=== PATIENT | male | born 1990 | race Two or more races ===

== ENCOUNTER 2019-11-06 11:36 | Emergency (ER) | payer OTHER ==
[2019-11-06] MEDS ORDERED: LORAZEPAM 1 MG TABLET PO ONE (11:37)
--- NOTE | 2019-11-06 11:39 | ER Document Report ---
ED General - General Chief Complaint: Shortness Of Breath Stated Complaint: SHORTNESS OF BREATH Notes: 29-year-old male, with a history of heavy drinking and anxiety presents with chest pain shortness of breath extremity and face tingling onset about an hour ago. He says could not come to the ER often for this, but today it was worse I think is from a drinking. Drink heavily yesterday. States he does drink daily but has had anxiety when stopping in the past and thinks he drinks too much. - Related Data Allergies/Adverse Reactions: Penicillins Allergy (Verified 11/06/19 12:14) Past Medical History - General Information source: Patient - Social History Smoking Status: Never Smoker Frequency of alcohol use: Heavy Family History: None Review of Systems - Review of Systems Notes: REVIEW OF SYSTEMS GEN: Denies fever, chills, weight loss ENT: Denies sore throat, nasal discharge, ear pain EYES: Denies blurry vision, eye pain, discharge CV: Chest pain RESP: Denies cough, shortness of breath, wheezing GI: Denies abdominal pain, nausea, vomiting, diarrhea MSK: Denies joint pain/swelling, edema, SKIN: Denies rash, skin lesions LYMPH: Denies swollen glands/lymph nodes NEURO: Denies headache, focal weakness or numbness, dizziness PSYCH: Anxiety panic alcohol abuse PHYSICAL EXAMINATION General: No acute distress, well-nourished Head: Atraumatic, normocephalic ENT: Mouth normal, oropharynx moist, no exudates or tonsillar enlargement Eyes: Conjunctiva normal, pupils equal, lids normal Neck: No JVD, supple, no guarding CVS: Normal rate, regular rhythm, no murmurs Resp: No resp distress, equal and normal breath sounds bilaterally GI: Nondistended, soft, no tenderness to palpation, no rebound or guarding Ext: No deformities, no edema, normal range of motion in upper and lower ext Back: No CVA or midline TTP Skin: No rash, warm Lymphatic: No lymphadeopathy noted Neuro: No tremor hand tremor, mild awake, alert. Face symmetric. GCS 15. Physical Exam - Vital signs Vitals: Temp Pulse Resp BP Pulse Ox 98.9 F 120 H 20 139/87 H 100 11/06/19 11:36 11/06/19 11:36 11/06/19 11:36 11/06/19 11:36 11/06/19 11:36 Course - Re-evaluation Re-evalutation: 11/06/19 11:42 Patient presents with chest pain shortness of breath and tingling reflective of hyperventilation but on exam has some tremulousness and a heavy alcohol use history.. Been treated with Ativan for both. His alcohol withdrawal is mild at best. His chest pain is likely secondary to panic as he has no coronary disease and he does not have features concerning for this. We will check baseline EKG. 11/06/19 13:14 After initial evaluation patient complained of slurred speech. On repeat exam he has severe facial paresthesias but no weakness and no dysarthria. This resolved after about 20 minutes when he was given Ativan. He has no focal deficits. I think he is stable for discharge. - Vital Signs Vital signs: Temp Pulse Resp BP Pulse Ox 98.2 F 120 H 21 H 123/84 100 11/06/19 13:03 11/06/19 11:36 11/06/19 12:47 11/06/19 12:47 11/06/19 12:47 - EKG Interpretation by Me EKG shows normal: Sinus rhythm Rate: Tachycardia Rhythm: NSR When compared to previous EKG there are: No significant change - No ST or T wave changes Discharge - Discharge Clinical Impression: Alcohol abuse, Panic attack Condition: Good Disposition: HOME, SELF-CARE Instructions: Alcohol Withdrawl ([facility]), Panic Attack ([facility])
[2019-11-06 12:52] VITALS: BP 123/84
--- NOTE | 2019-11-06 18:21 | EKG REPORT ---
SEVERITY:- ABNORMAL ECG - SINUS TACHYCARDIA BORDERLINE RIGHT AXIS DEVIATION NONSPECIFIC T ABNORMALITIES, DIFFUSE LEADS : Confirmed by: Andrew White MD 06-Nov-2019 18:20:59
== END 2019-11-06 13:03 | disposition home or self-care (01) ==
LOC: ER 11:36
DX: F10.10 Alcohol abuse, uncomplicated (principal); F41.0 Panic disorder [episodic paroxysmal anxiety]; R07.9 Chest pain, unspecified; R06.02 Shortness of breath; F41.9 Anxiety disorder, unspecified; R20.0 Anesthesia of skin; Z88.0 Allergy status to penicillin
CPT/HCPCS: 93005; 93010; 99283